=== PATIENT | male | born 1960 | race Caucasian/White ===

== ENCOUNTER 2018-07-08 13:02 | Inpatient (IN) | payer BC ==
[~2018-07-08] VITALS: Ht 177.8 cm; Wt 83.0 kg
[~2018-07-08 13:02] MED LIST: FOLIC ACID 40400 MCG PO; IRON TABLETS325 MG PO; PRILOSEC 20MG20 MG PO; VITAMIN C500 MG PO; ZESTRIL 20MG TA20 MG PO
[2018-08-02] VITALS (11 sets, daily range): BP systolic 95–144; BP diastolic 65–83; PULSE 55–81; TEMP 97.9–98.6
--- NOTE | 2018-08-02 06:04 | NUR ---
PT ADMITTED AMBULATORY TO ROOM 329, ASSESSMENTS COMPLETE, VSS, PT IS A/O X3. AT BEDSIDE. LISINOPRIL TAKEN LAST NOC.
--- NOTE | 2018-08-02 07:11 | NUR ---
pt to surgery @ 0620 per bed with
--- NOTE | 2018-08-02 10:20 | NUR ---
PT TO ROOM 329 PER BED WITH KEITH SANTANA PACU REPORT @1000. PT IS A/O X3, DRESSING TO RIGHT KNEE CDI WITH IRENE WRAP OVER INCISION. PT DENIES PAIN. AT BEDSIDE. IV TO PUMP PER ORDERS.
--- NOTE | 2018-08-02 11:23 | NUR ---
Initial visit; Patient thanked Blender / Cook for looking in on him and offering God's blessings.
--- NOTE | 2018-08-02 21:30 | NUR ---
Assessment completed. Patient is A&O x 4. VSS, on room air. Pain controlled with oral pain medication. Sherman wrap dressing to right knee is CDI with a fresh ice pack applied. LLE nichole hose on/BLE scds on. Encouraged ankle pumps. Patient reports RLE feels heavy and unable to completely lift off the bed at this time. Tolerating diet with no c/o nausea. Voiding with no difficulities. IVF infusing with intermittent antibiotic. Up with standby assist with walker, gait is steady. Denies any concerns or needs at this time. Bed is in a low position with call light in reach.
[2018-08-03 02:12] VITALS: BP 119/59; PULSE 66; TEMP 98.5
--- NOTE | 2018-08-03 05:22 | NUR ---
Patient has rested well through the night. VSS, remains on room air. Alternating [place] for pain control. Sherman wrap dressing to right knee remains CDI with an ice pack maintained to knee. Patient has been up independently in room with walker. IV to INT this morning with last antibiotic given. Denies any concerns or needs. remains at bedside.
--- NOTE | 2018-08-03 07:09 | NUR ---
Reported on to primary nurse Michelle RN. Scd's applied, right knee bibiana wrapped with ice. No complaints. Sitting up eating breakfast.
[2018-08-03] MEDS ORDERED: NORCO 325 MG-7.1 TAB PO (07:30)
[2018-08-03] MEDS ORDERED: ROXICODONE 55 MG/TAB PO (07:31)
--- NOTE | 2018-08-03 07:44 | NUR ---
Assessment done at 0730. No abnormal findings. Pt has no complaints. INT intact with no redness or swelling. PA visited.
[2018-08-03 07:47] VITALS: BP 110/79; PULSE 64; TEMP 97.5
--- NOTE | 2018-08-03 10:30 | NUR ---
Dressing to RT knee changed to aquacel bandage. No noted drainage oe redness. Wound edges well aproximated with robert. NADEEM hose applied.
--- NOTE | 2018-08-03 11:15 | NUR ---
SW and SW student met with the patient to discuss discharge plan. The patient lives in [place] with his , Carmella. The patient has crutches and a walker. He reports independence with ADLs. The patient's PCP is Dr. Flora Godwin and he receives his medications from [id number] in [place], [place]. The patient reports no difficulties obtaining his medications. The patient plans to return home with his upon discharge. No additonal needs at this time.
--- NOTE | 2018-08-03 11:30 | NUR ---
INT discontinued with tip intact. Pressure applied x 2 minutes gauze with tape applied. no redness or swelling noted.
--- NOTE | 2018-08-03 11:44 | NUR ---
Reported off with Michelle SANTANA.
--- NOTE | 2018-08-03 12:00 | NUR ---
PATIENT DISCHARGING HOME VIA WHEELCHAIR TO PERSONAL VEHICLE. GAVE DISCHARGE INSTRUCTIONS, ALREADY HAS PAIN MED SCRIPTS, AQUACEL AND FOLLOW UP APT. ANSWERED ALL QUESTIONS/CONCERNS. STUDENT NURSE DC'D IV, SEE CHARTING. POST OP RTK DRESSING WAS ALSO CHANGED TO AQUACEL BEFORE DISCHARGE.
== END 2018-08-03 12:00 | disposition home or self-care (01) | DRG 470 ==
LOC: JCC 08-02 05:02
PROVIDERS: ADMIT Orthopaedic Surgery
PROC: 0SRC0J9 Replacement of Right Knee Joint with Synthetic Substitute, Cemented, Open Approach (ICD-10-PCS; principal; 2018-08-02 07:30)
DX: M17.11 Unilateral primary osteoarthritis, right knee (principal); I10 Essential (primary) hypertension; E78.5 Hyperlipidemia, unspecified; Z87.891 Personal history of nicotine dependence
CPT/HCPCS: A9284; C1713; C1776; J0690; J1100; J2250; J2405; J2704; J2795; J3010; J7042; J7120

== ENCOUNTER 2018-10-19 07:34 | Day surgery (SDC) | payer BC ==
[~2018-10-19] VITALS: Ht 175.3 cm; Wt 86.2 kg
[~2018-10-19 07:34] MED LIST changes: +NORCO 325 MG-7.1 TAB PO; +ROXICODONE 55 MG/TAB PO
[2018-10-19 08:11] VITALS: BP 109/74; PULSE 90; TEMP 97.5
[2018-10-19] MEDS ORDERED: TYLENOL 325MG325 MG PO (08:21)
[2018-10-19 11:18] LABS: MEAN CELL VOLUME 89 fl (80.0-100.0); MEAN CORPUSCULAR HGB CONC 32 g/dl (33.0-37.0); MEAN PLATELET VOLUME 10.4 fl (7.4-10.4); PLATELET COUNT 287 K/mm3 (130-400); RED BLOOD COUNT 3.46 M/mm3 (4.20-5.60)
[2018-10-19 11:19] LABS: HEMATOCRIT 30.7 % (42.0-52.0); HEMOGLOBIN 9.7 g/dl (13.5-18.0); MEAN CORPUSCULAR HEMOGLOBIN 28 pg (27.0-31.0)
[2018-10-19 11:22] LABS: ALBUMIN 3.5 gm/dL (3.5-5.0); BILIRUBIN,TOTAL 0.8 mg/dL (0.0-1.0); CALCIUM 9.3 mg/dL (8.4-10.2); CREATININE, serum 0.67 (0.66-1.25); POTASSIUM 4.6 mmol/L (3.4-5.0); TOTAL PROTEIN 6.6 gm/dL (6.4-8.2)
[2018-10-19 11:54] LABS: BAND 1 % (0-10); EOSINOPHIL 11 % (0-4); LYMPHOCYTE 28 % (20.0-51.0); NEUTROPHILS 58 % (42.0-75.2)
[2018-10-19 11:55] LABS: PLATELET ESTIMATE NORMAL (NORMAL)
[2018-10-19 12:43] VITALS: BP 126/75; PULSE 83; TEMP 98.2
--- NOTE | 2018-10-19 12:43 | NUR ---
Patient brought back to [facility]. Alert and oriented. States pain is 3/10 to right knee. Vital signs stable. Requesting soda and crackers at this time. Denies any nausea. at bedside. Call marcum within reach will continue to monitor.
[2018-10-19 12:58] VITALS: BP 130/76; PULSE 87
--- NOTE | 2018-10-19 12:58 | NUR ---
Patients vitals remain WNL. Offered pain medication at this time states he does not want any. Tolerating food and drink without difficulty. Will continue to monitor.
[2018-10-19 13:13] VITALS: BP 127/67; PULSE 79
--- NOTE | 2018-10-19 13:13 | NUR ---
Patient states he feels ready to go home at this time. Vital signs WNL. Ambulated to bathroom with walker. Spontaneous void obtained. Will continue to monitor.
--- NOTE | 2018-10-19 13:40 | NUR ---
Patient PICC line disconected from IV fluids. Flused with 10 CC normal saline. Replaced cap. Tolerated procedure well. Discharge instructions reviewed with patient and . Pain medication script, follow up appointment card, and physical therapy script given to . Patient to get dressed at this time.
--- NOTE | 2018-10-19 13:49 | NUR ---
Patient brought down to lobby via wheelchair. pulled car to front, patient to be driven home by .
== END 2018-10-19 13:49 | disposition home or self-care (01) ==
LOC: SDCO 07:34
PROVIDERS: Internal Medicine Medical Oncology
DX: M24.661 Ankylosis, right knee (principal); E78.00 Pure hypercholesterolemia, unspecified; C18.9 Malignant neoplasm of colon, unspecified; Z87.891 Personal history of nicotine dependence; Z80.9 Family history of malignant neoplasm, unspecified; Z79.899 Other long term (current) drug therapy; I10 Essential (primary) hypertension; K21.9 Gastro-esophageal reflux disease without esophagitis; J40 Bronchitis, not specified as acute or chronic
CPT/HCPCS: J1100; J1885; J2250; J2405; J2704; J3010